=== PATIENT | female | born 1980 | race Hispanic/Latino ===

== ENCOUNTER 2018-08-09 17:04 | Emergency (ER) | payer BC ==
[~2018-08-09] VITALS: Ht 157.5 cm; Wt 81.6 kg
[2018-08-09] MEDS ORDERED: ONDANSETRON HCL INJ 2 MG/ML VIAL IV STA (17:19)
[2018-08-09] MEDS ORDERED: MORPHINE SULFATE 5 MG/ML VIAL IV ONE (17:30)
[2018-08-09] MEDS ORDERED: KETOROLAC TROMETHAMINE 30 MG/ML VIAL IV STA (17:59)
--- NOTE | 2018-08-09 18:43 | Diagnostic Imaging Report ---
EXAM: CT Abdomen and Pelvis WITHOUT contrast INDICATION: Left upper quadrant abdominal pain COMPARISON: None. TECHNIQUE: Abdomen and pelvis were scanned utilizing a multidetector helical scanner from the lung base to the pubic symphysis without administration of IV contrast. Absence of intravenous contrast decreases sensitivity for detection of focal lesions and vascular pathology. Coronal and sagittal reformations were obtained. Routine protocol was performed. IV CONTRAST: None ORAL CONTRAST: Water COMPLICATIONS: None RADIATION DOSE: Total DLP: 752.6 mGy*cm Estimated effective dose: (DLP x 0.015 x size factor) mSv CTDIvol has been reviewed. It is below the limits set by the Radiation Protocol Committee (RPC). FINDINGS: LINES and TUBES: None. LOWER THORAX: Small sliding hiatal hernia. HEPATOBILIARY: No focal hepatic lesions. No biliary ductal dilation. GALLBLADDER: There are cholecystectomy clips. SPLEEN: No splenomegaly. PANCREAS: No focal masses or ductal dilatation. ADRENALS: No adrenal nodules KIDNEYS/URETERS: No hydronephrosis. No cystic or solid mass lesions. No stones. GI TRACT: Mobile cecum, which is located in the left abdomen. No abnormal distention, wall thickening, or evidence of bowel obstruction. Appendix is not clearly identified. There is however no fat stranding or adenopathy in the right lower quadrant to suggest appendicitis. PELVIC ORGANS/BLADDER: Retroverted uterus. LYMPH NODES: No lymphadenopathy. VESSELS: Unremarkable. PERITONEUM / RETROPERITONEUM: No free air or fluid. BONES: Unremarkable. SOFT TISSUES: Unremarkable. IMPRESSION: 1. Mobile cecum. 2. No source of left upper quadrant pain. 3. Tiny sliding hiatal hernia. Signed by: Dr. Canelo Joy M.D. on 08/09/2018 6:40 PM
== END 2018-08-09 19:00 | disposition home or self-care (01) ==
LOC: FSED 17:04
DX: R10.32 Left lower quadrant pain (principal); N80.3 Endometriosis of pelvic peritoneum; N80.5 Endometriosis of intestine
CPT/HCPCS: 74176; 99284; J1885; J2270; J2405